=== PATIENT | male | born 1955 | race Two or more races ===

== ENCOUNTER 2024-07-13 06:23 | Day surgery (SDC) | payer OTHER, MEDICAID ==
[~2024-07-13] VITALS: Ht 170.2 cm; Wt 78.0 kg
[2024-07-13] VITALS (7 sets, daily range): BP systolic 131–146; BP diastolic 77–89; PULSE 61–72; RESP 13–18; O2SAT 94–97
[2024-07-13] MEDS ORDERED: MIDAZOLAM HCL 2MG/2ML 2ml VIAL (1mg/ml) ONE (06:50)
[2024-07-13] MEDS ORDERED: fentaNYL CITRATE 100 MCG/2 ML VL ONE (06:50)
[2024-07-13] MEDS ORDERED: ANGIOMAX 250 MG VIAL IV ONE (06:50)
[2024-07-13] MEDS ORDERED: LIDOCAINE 2%HCL (LOCAL ANESTH.) INJ 20ML MDV ONE (06:51)
[2024-07-13] MEDS ORDERED: SODIUM CHL 0.9% 0 ML ONE (06:51)
[2024-07-13] MEDS ORDERED: IODIXANOL 320MG/ML 100ML BTL IV ONE ×3 (06:57→07:32)
--- NOTE | 2024-07-13 09:00 | DVHOP2 ---
Operative Report Procedures performed: Left heart catheterization and bilateral coronary angiogram Bypass angiography Ascending aortography Moderate sedation (lasting more than 45 minutes) Ultrasound guided access Diagnosis: Multivessel ewiiaapaayp coronary artery disease Patent SOTO to LAD Patent SVG to RPDA/RPLS Cardiac suggestion for management: Optimized medical therapy Lifestyle and risk factor modifications Findings: LVEF: 60% LVEDP: 15 mm Hg There was no transaortic valve pressure gradient Left main: Left main was coming off the left sinus of Valsalva. There was 20% distal left main disease. LAD: LAD was coming off the left main. LAD was [employer] at its mid section. There was diagonals with moderate disease. Distal portion of LAD was nourished via patent SOTO LCX: LCX was coming off the left main. LCX and branches had mild diffuse disease RCA: RCA was coming off the right sinus of Valsalva. It was a dominant vessel and provided RPDA. There was 75% disease in proximal RCA. Ramus intermedius: Ramus intermedius was a small to medium-sized vessel with moderate proximal disease SOTO to LAD: SOTO to LAD was patent with no significant disease. SVG to RPDA/RPLS was patent with no significant disease Presentation: Patient is a 68-year-old gentleman who presented with dyspnea on exertion to the office. Past medical history includes coronary artery disease and status post CABG in 2021. Other comorbidities include hypertension, hyperlipidemia, diabetes mellitus and status post hernia repair. Nuclear stress test of February 2024 was abnormal. Echocardiogram of June 23, 2024 revealed ejection fraction of 55-60%, no wall motion abnormality, aortic root was 4.0 cm. There was mild MR/TR and right ventricular systolic pressure was less than 35 mm Hg. Patient was sent for cardiac catheterization. Procedure: After obtaining informed consent, the patient was brought to the tutorial laboratory supervisor. He was prepped and draped in sterile fashion. 1 mg of Versed and 50 mcg of fentanyl were used for moderate sedation (lasting more than 45 minutes). Were used right femoral artery for access. Under ultrasound guidance and using a micropuncture, right femoral artery was accessed. After fluoroscopically proving a good access point, the micropuncture sheath was exchanged over a wire to a 6 Portuguese femoral sheath. A JL4 diagnostic catheter was used to perform left coronary angiography. A JR4 diagnostic catheter was used to perform right coronary angiography, SVG angiography to RPLS and also SOTO angiography. A 6 Portuguese pigtail catheter was used to perform left heart catheterization (obtaining pressures and performing left ventriculography) and also ascending aortography. We did use several other catheters (6 Portuguese LCB and also 6 Portuguese AL1) to search for any remaining SVGs. No other SVGs were identified. There was no indication for any transcatheter revascularization. Total bleeding was less than 20 mL. Right femoral artery access site was managed by deploying an Angio-Seal device. There was no dissection/hematoma/perforation. Patient tolerated the procedure with no complication. Fluoroscopy time: 15.9 minutes contrast: 275 mL of ELENA Rocha MD Jul 13, 2024 09:00
== END 2024-07-13 11:05 | disposition home or self-care (01) ==
LOC: CATH 06:23
PROVIDERS: ATTEND Internal Medicine Cardiovascular Disease
DX: R06.09 Other forms of dyspnea (principal); I50.9 Heart failure, unspecified; I25.10 Atherosclerotic heart disease of native coronary artery without angina pectoris; I10 Essential (primary) hypertension; E78.5 Hyperlipidemia, unspecified; E11.9 Type 2 diabetes mellitus without complications; Z98.890 Other specified postprocedural states; Z95.1 Presence of aortocoronary bypass graft; R94.39 Abnormal result of other cardiovascular function study
CPT/HCPCS: 93459; C1725; C1760; C1894; J1644; J2250; J3010; J7030; Q9967; 93458; 99152; 99153